=== PATIENT | male | born 1960 | race Caucasian/White ===

== ENCOUNTER → 2017-01-27 | Outpatient (CLI) | payer OTHER ==
[2013-11-29 10:00] VITALS: BP 132/83
[~2017-01-27] MED LIST: ALPR1TAB2 PO; CITA20TA9 PO; FENO134C PO; GLIM2TAB2 PO; IBUP800T19 PO; LIRA0.6P2 SQ; LISI-338 PO; METF10002 PO; OXYC-323 PO; PHEN37.598 PO; PRAV40TA2 PO; ZOLP10TA PO
--- NOTE | 2017-01-27 09:58 | RAD ---
Right hand, 3 views, 01/27/2017: History: Right thumb pain There has been previous amputation of the tip of the little finger involving the distal phalanx. There are moderate degenerative changes at scattered interphalangeal joints including the IP joint of the thumb. There is mild spurring at scattered MCP joints and at the first CMC joint. No bone erosions are seen. No acute fracture or dislocation is identified. IMPRESSION: 1. Moderate scattered degenerative changes as described above. 2. No acute bony abnormality is detected.
--- NOTE | 2017-01-27 10:01 | RAD ---
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 The right hip joint space is fairly well-preserved with only mild marginal spurring. No acute fracture or dislocation is identified. Calcifications along the margins of the greater trochanters are probably of tendinous origin. Degenerative change is noted in the lower lumbar spine. Surgical clips overlie the scrotal region. IMPRESSION: 1. Chronic findings as described above. 2. No acute bony abnormality is detected.
== END | disposition home or self-care (01) ==
LOC: DXRADRC 07:24
PROVIDERS: ATTEND Physician Assistant Medical
DX: M18.9 Osteoarthritis of first carpometacarpal joint, unspecified (principal); M25.551 Pain in right hip; M89.9 Disorder of bone, unspecified; M47.896 Other spondylosis, lumbar region; Z96.642 Presence of left artificial hip joint; Z89.021 Acquired absence of right finger(s)
CPT/HCPCS: 73130; 73501

== ENCOUNTER → 2018-01-03 | Outpatient (CLI) | payer OTHER ==
[2013-11-29 10:00] VITALS: BP 132/83
[~2018-01-03] MED LIST changes: -METF10002 PO; +METF10007 PO
== END | disposition home or self-care (01) ==
LOC: SURG 09:07
PROVIDERS: ATTEND Anesthesiology Pain Medicine
DX: M47.24 Other spondylosis with radiculopathy, thoracic region (principal); E11.9 Type 2 diabetes mellitus without complications; I10 Essential (primary) hypertension; K21.9 Gastro-esophageal reflux disease without esophagitis; E78.00 Pure hypercholesterolemia, unspecified; E78.5 Hyperlipidemia, unspecified; I25.10 Atherosclerotic heart disease of native coronary artery without angina pectoris; Z79.01 Long term (current) use of anticoagulants; Z88.0 Allergy status to penicillin
CPT/HCPCS: 99203